=== PATIENT | male | born 1955 | race Caucasian/White ===

== ENCOUNTER 2016-10-13 13:13 | Observation (INO) | payer BC ==
[2016-10-13 13:13] VITALS: BMI 26.4
[2016-10-13] MEDS ORDERED: Aspirin 325 mg EC Tablets PO STA (13:30)
[2016-10-13 13:43] LABS: BASO % 0.4 % (0.0-2.0); EOS # 0.1 K/uL (0.0-0.7); EOS % 1.1 % (0.0-4.0); HEMATOCRIT 32.3 % (35.0-51.0); LYMPH # 1.2 K/uL (1.0-4.3); LYMPH % 16.5 % (20.0-40.0); MEAN CORPUSCULAR HEMOGLOBIN 30.5 pg (27.0-31.0); MEAN CORPUSCULAR HGB CONC 32.8 g/dL (33.0-37.0); MEAN PLATELET VOLUME 9.6 fL (7.2-11.7); MONO # 0.6 K/uL (0.0-0.8); MONO % 8.1 % (0.0-10.0); RED CELL DISTRIBUTION WIDTH 13.9 % (11.5-14.5); WHITE BLOOD COUNT 7.1 K/uL (4.8-10.8)
[2016-10-13 13:52] LABS: POTASSIUM 3.6 mmol/L (3.6-5.2)
[2016-10-13 13:54] LABS: TOTAL PROTEIN 6.5 g/dL (6.3-8.3)
--- NOTE | 2016-10-13 13:54 | RAD ---
PROCEDURE: CHEST RADIOGRAPH, 1 VIEW HISTORY: SOB COMPARISON: 02/12/2013 FINDINGS: LUNGS: There is vascular congestion and bibasilar infiltrates PLEURA: No pneumothorax or pleural fluid seen. CARDIOVASCULAR: Normal. OSSEOUS STRUCTURES: No significant abnormalities. VISUALIZED UPPER ABDOMEN: Normal. OTHER FINDINGS: None. IMPRESSION: Mild vascular congestion and bibasilar infiltrates
[2016-10-13 14:09] LABS: BILIRUBIN,TOTAL 0.6 mg/dL (0.2-1.3)
[2016-10-13 14:14] LABS: TROPONIN I 0.014 ng/mL (0.00-0.120)
--- NOTE | 2016-10-13 14:20 | C.PDOC ---
History Of Present Illness 61 y/o male presents to ED with complaint of substernal chest pressure intermittently for the last 3 days. Patient notes poor compliance with blood pressure medications and states his Lisinopril was increased from 20mg to 40mg 2 weeks ago. Patient reports he receives dialysis Monday, Thrday, - had dialysis prior to arrival. Denies fever, chills, nausea, vomiting, shortness of breath, or other associated symptoms. Time Seen by Provider: 10/13/16 13:21 Chief Complaint (Nursing): Chest Pain History Per: Patient History/Exam Limitations: no limitations Onset/Duration Of Symptoms: Days, Intermittent Episodes Current Symptoms Are (Timing): Still Present Quality: Pressure Associated Symptoms: denies: Diaphoresis, Syncope Recent travel outside of the [place]: No Past Medical History Reviewed: Historical Data, Nursing Documentation, Vital Signs Vital Signs: Last Vital Signs Temp 98.3 F 10/13/16 13:19 Pulse 62 10/13/16 17:04 Resp 13 10/13/16 17:04 BP 169/65 H 10/13/16 17:04 Pulse Ox 96 10/13/16 17:04 - Medical History PMH: Anemia, HTN, End Stage Renal Disease, Chronic Kidney Disease - [facility] Procedures CATARAC PHACOEMULS/ASPIR (01/29/14) DIALYSIS ARTERIOVENOSTOM (02/08/13) HEMODIALYSIS (02/08/13) INSERT LENS AT CATAR EXT (01/29/14) VENOUS CATHETERIZATION FOR RENAL DIALYSIS (02/08/13) Family History: States: Unknown Family Hx - Social History Hx Tobacco Use: No Hx Alcohol Use: No Hx Substance Use: No - Immunization History Hx Tetanus Toxoid Vaccination: No Hx Influenza Vaccination: No Hx Pneumococcal Vaccination: No Review Of Systems Except As Marked, All Systems Reviewed And Found Negative. Constitutional: Negative for: Fever, Chills Cardiovascular: Positive for: Chest Pain. Negative for: Palpitations Respiratory: Negative for: Cough, Shortness of Breath Gastrointestinal: Negative for: Nausea, Vomiting Skin: Negative for: Rash Physical Exam - Physical Exam Appears: Non-toxic, No Acute Distress Skin: Normal Color, Warm, Dry Head: Atraumatic, Normacephalic Chest: Symmetrical Cardiovascular: Rhythm Regular Respiratory: Normal Breath Sounds, No Rales, No Rhonchi, No Wheezing Gastrointestinal/Abdominal: Soft, No Tenderness, No Guarding, No Rebound Back: Normal Inspection Extremity: Normal ROM, Capillary Refill (< 2 sec. ), Other (dialysis catheter left upper arm) Extremity: Bilateral: Normal Color And Temperature Neurological/Psych: Oriented x3, Normal Speech, Normal Cognition ED Course And Treatment - Laboratory Results Result Diagrams: 10/13/16 13:35 10/13/16 13:35 Lab Interpretation: Abnormal (c/w ESRD on HD, normal K+ (HD earlier today)) ECG: Interpreted By Me ECG Rhythm: Sinus Rhythm ECG Interpretation: Normal Rate From EC (bpm) O2 Sat by Pulse Oximetry: 97 (RA) Pulse Ox Interpretation: Normal - Radiology CXR: Interpreted by Me CXR Interpretation: Yes: Other (+ mild CHF, + cardiomegaly) Progress Note: Labetolol 200 mg PO and Carvedolol 12.5 mg PO Reevaluation Time: 15:22 Reassessment Condition: Improved - Physician Consult Information Outcome Of Conversation: 1515: d/w Dr. Gregorio- Medicine Cargo Services Coordinator- ok to Tele obs. Medical Decision Making Medical Decision Making: poorly controlled HTN even AFTER HD earlier today Taking Carvedolol 12.5 mg morning and NIGHT- instructed to take BID (8AM and 4PM ) Plan: Carvedolol may be increased to 25 mg BID Lisinopril 40 mg daily recently increased from 20 mg daily (approx 2 wks ago) though considering renal failure, other non-renal HTN meds may be considered. Disposition Doctor Will See Patient In The: Hospital Counseled Patient/Family Regarding: Studies Performed, Diagnosis - Disposition Disposition: HOME/ ROUTINE Disposition Time: 15:24 Condition: GOOD - Clinical Impression Clinical Impression: Chest discomfort, Congestive heart failure, Uncontrolled hypertension - Scribe Statement The provider has reviewed the documentation as recorded by the Gita Guidry Provider Scribe Attestation: All medical record entries made by the Gita were at my direction and personally dictated by me. I have reviewed the chart and agree that the record accurately reflects my personal performance of the history, physical exam, medical decision making, and the department course for this patient. I have also personally directed, reviewed, and agree with the discharge instructions and disposition.
[2016-10-14 01:38] VITALS: RESP 20
[2016-10-14 07:15] LABS: HEMATOCRIT 29.8 % (35.0-51.0); MEAN CELL VOLUME 93.3 fL (80.0-94.0); MEAN CORPUSCULAR HEMOGLOBIN 30.9 pg (27.0-31.0); MEAN CORPUSCULAR HGB CONC 33.1 g/dL (33.0-37.0); MEAN PLATELET VOLUME 9.9 fL (7.2-11.7); RED CELL DISTRIBUTION WIDTH 13.9 % (11.5-14.5); WHITE BLOOD COUNT 6.1 K/uL (4.8-10.8)
[2016-10-14 07:31] LABS: CHLORIDE 96 mmol/L (98-107); POTASSIUM 3.9 mmol/L (3.6-5.2); SODIUM 140 mmol/L (132-148)
[2016-10-14 07:34] LABS: BLOOD UREA NITROGEN 34 mg/dL (9-20); CARBON DIOXIDE 31 mmol/L (22-30); CHOLESTEROL 138 mg/dL (0-199); GFR AFRICAN-AMERICAN 12; GLUCOSE,RANDOM 81 mg/dL (75-110)
[2016-10-14 07:35] LABS: CALCIUM 7.4 mg/dl (8.6-10.4); IRON 51 ug/dL (49-181)
[2016-10-14 07:57] LABS: THYROID STIMULATING HORMONE 3.28 mIU/L (0.46-4.68)
[2016-10-14 08:31] LABS: FOLATE 6.2 ng/mL
[2016-10-14] MEDS ORDERED: CALCIUM ACETATE PO SCH (10:00)
--- NOTE | 2016-10-14 13:03 | CP.PCM.CON ---
History of Present Illness - History of Present Illness History of Present Illness: Middle aged male with history of HTN, ESRD on dialysis who had chest pain but at this time complain of headache. No chest pain. Past Patient History - Past Medical History & Family History Past Medical History?: Yes - Past Social History Smoking Status: Never Smoked - CARDIAC Hx Hypertension: Yes - PULMONARY Hx Respiratory Disorders: No - NEUROLOGICAL Hx Neurological Disorder: No - HEENT Hx Cataracts: Yes Other/Comment: Humberto. Cataract Extraction 2015 - RENAL Date of Last Dialysis Treatment: 10/13/16 - ENDOCRINE/METABOLIC Hx Endocrine Disorders: No - HEMATOLOGICAL/ONCOLOGICAL Hx Anemia: Yes - INTEGUMENTARY Hx Dermatological Problems: No - MUSCULOSKELETAL/RHEUMATOLOGICAL Hx Falls: No - GASTROINTESTINAL Hx Gastroesophageal Reflux: Yes - GENITOURINARY/GYNECOLOGICAL Hx Genitourinary Disorders: No (RENAL FAILURE) - PSYCHIATRIC Hx Substance Use: No - SURGICAL HISTORY Hx Surgeries: Yes Hx Arteriovenous Shunt: Yes (LEFT ARM SEVERAL) Hx Cataract Extraction: Yes (Humberto. EYE) - ANESTHESIA Hx Anesthesia: Yes Hx Anesthesia Reactions: No Hx Malignant Hyperthermia: No Has any member of the family had a problem w/ anesthesia?: No Meds Allergies/Adverse Reactions: Allergies Allergy/AdvReac Type Severity Reaction Status Date / Time No Known Allergies Allergy Verified 10/13/16 13:24 - Medications Medications: Current Medications Aspirin (Aspirin Chewable) 81 mg PO DAILY [facility] Last Admin: 10/14/16 11:34 Dose: 81 mg Calcium Acetate (Phoslo) 667 mg PO TIDCC [facility] Last Admin: 10/14/16 11:22 Dose: 667 mg Carvedilol (Coreg) 12.5 mg PO BID [facility] Last Admin: 10/14/16 11:23 Dose: 12.5 mg Famotidine (Pepcid) 20 mg PO DAILY [facility] Last Admin: 10/14/16 11:23 Dose: 20 mg Heparin Sodium (Porcine) (Heparin) 5,000 units SC Q12 [facility] Hydralazine HCl (Apresoline) 50 mg PO TID [facility] Last Admin: 10/14/16 10:54 Dose: 50 mg Lisinopril (Zestril) 40 mg PO DAILY [facility] Last Admin: 10/14/16 10:54 Dose: 40 mg Physical Exam - Head Exam Head Exam: NORMOCEPHALIC - Neck Exam Neck exam: Positive for: Normal Inspection - Respiratory Exam Respiratory Exam: Decreased Breath Sounds, NORMAL BREATHING PATTERN - Cardiovascular Exam Cardiovascular Exam: REGULAR RHYTHM - Extremities Exam Extremities exam: Positive for: pedal edema - Neurological Exam Neurological exam: Oriented x3 Results - Vital Signs Recent Vital Signs: Last Vital Signs Temp 98.3 F 10/14/16 08:23 Pulse 71 10/14/16 08:23 Resp 20 10/14/16 08:23 BP 161/68 H 10/14/16 11:23 Pulse Ox 96 10/14/16 08:23 - Labs Result Diagrams: 10/15/16 06:00 10/15/16 06:00 Labs: Laboratory Results - last 24 hr 10/13/16 10/14/16 22:33 06:59 WBC 6.1 RBC 3.19 L Hgb 9.9 L Hct 29.8 L MCV 93.3 MCH 30.9 MCHC 33.1 RDW 13.9 Plt Count 156 MPV 9.9 Sodium 140 Potassium 3.9 Chloride 96 L Carbon Dioxide 31 H Anion Gap 17 BUN 34 H Creatinine 5.7 H Est GFR ( Amer) 12 Est GFR (Non-Af Amer) 10 Random Glucose 81 Hemoglobin A1c 5.3 Calcium 7.4 L Iron 51 TIBC 229 L % Saturation 22 Total Creatine Kinase 38 L 36 L CK-MB (Mass) < 0.22 < 0.22 Troponin I, Quant 0.0220 0.0180 Triglycerides 86 Cholesterol 138 LDL Cholesterol Direct 72 HDL Cholesterol 36 Vitamin B12 299 Folate 6.2 TSH 3rd Generation 3.28 - EKG Data EKG shows normal: Sinus rhythm (ST-T changes suggestive of ischemia.) Assessment & Plan (1) Congestive heart failure Assessment and Plan: Fluid overload vs systolic/diastolic dysfunction. may need extra dialysis. Echocardiogarm and fluid restriction. Status: Acute (2) Uncontrolled hypertension Assessment and Plan: Added hydralazine and increase as tolerated. Status: Acute
--- NOTE | 2016-10-14 14:50 | CP.PCM.CON ---
History of Present Illness - History of Present Illness History of Present Illness: 61 y/o male presents to ED with complaint of substernal chest pressure intermittently for the last 3 days. Patient notes poor compliance with blood pressure medications and states his Lisinopril was increased from 20mg to 40mg 2 weeks ago. Patient reports he receives dialysis Monday, Thr, - had dialysis prior to arrival. Denies fever, chills, nausea, vomiting, shortness of breath, or other associated symptoms. PMH: ESRD- ON DIALYSIS 2.5 YEARS DM 2 DIABETIC NEPHROPATHY HTN CHF HX PSH: AV FISTULA SOC HX- NEG FOR SMOKING, ETOH, ILLICITS CONSULT DICTATED WILL ARRANGE FOR DIALYSIS WITH INCREASED UF WILL ADJUST BP MEDS WILL NEED CARDIOLGY EVAL Past Patient History - Past Medical History & Family History Past Medical History?: Yes - Past Social History Smoking Status: Never Smoked - CARDIAC Hx Hypertension: Yes - PULMONARY Hx Respiratory Disorders: No - NEUROLOGICAL Hx Neurological Disorder: No - HEENT Hx Cataracts: Yes Other/Comment: Humberto. Cataract Extraction 2015 - RENAL Date of Last Dialysis Treatment: 10/13/16 - ENDOCRINE/METABOLIC Hx Endocrine Disorders: No - HEMATOLOGICAL/ONCOLOGICAL Hx Anemia: Yes - INTEGUMENTARY Hx Dermatological Problems: No - MUSCULOSKELETAL/RHEUMATOLOGICAL Hx Falls: No - GASTROINTESTINAL Hx Gastroesophageal Reflux: Yes - GENITOURINARY/GYNECOLOGICAL Hx Genitourinary Disorders: No (RENAL FAILURE) - PSYCHIATRIC Hx Substance Use: No - SURGICAL HISTORY Hx Surgeries: Yes Hx Arteriovenous Shunt: Yes (LEFT ARM SEVERAL) Hx Cataract Extraction: Yes (Humberto. EYE) - ANESTHESIA Hx Anesthesia: Yes Hx Anesthesia Reactions: No Hx Malignant Hyperthermia: No Has any member of the family had a problem w/ anesthesia?: No Meds Allergies/Adverse Reactions: Allergies Allergy/AdvReac Type Severity Reaction Status Date / Time No Known Allergies Allergy Verified 10/13/16 13:24 - Medications Medications: Current Medications Acetaminophen (Tylenol 325mg Tab) 650 mg PO Q6 PRN PRN Reason: Pain, Mild (1-3) Stop: 10/17/16 23:59 Aspirin (Aspirin Chewable) 81 mg PO DAILY [facility] Last Admin: 10/14/16 11:34 Dose: 81 mg Calcium Acetate (Phoslo) 667 mg PO TIDCC [facility] Last Admin: 10/14/16 11:22 Dose: 667 mg Carvedilol (Coreg) 12.5 mg PO BID [facility] Last Admin: 10/14/16 11:23 Dose: 12.5 mg Famotidine (Pepcid) 20 mg PO DAILY [facility] Last Admin: 10/14/16 11:23 Dose: 20 mg Heparin Sodium (Porcine) (Heparin) 5,000 units SC Q12 [facility] Hydralazine HCl (Apresoline) 50 mg PO TID [facility] Last Admin: 10/14/16 14:32 Dose: 50 mg Lisinopril (Zestril) 40 mg PO DAILY [facility] Last Admin: 10/14/16 10:54 Dose: 40 mg Results - Vital Signs Recent Vital Signs: Last Vital Signs Temp 98.3 F 10/14/16 08:23 Pulse 71 10/14/16 08:23 Resp 20 10/14/16 08:23 BP 161/68 H 10/14/16 11:23 Pulse Ox 96 10/14/16 08:23 - Labs Result Diagrams: 10/14/16 06:59 10/14/16 06:59 Labs: Laboratory Results - last 24 hr 10/13/16 10/14/16 22:33 06:59 WBC 6.1 RBC 3.19 L Hgb 9.9 L Hct 29.8 L MCV 93.3 MCH 30.9 MCHC 33.1 RDW 13.9 Plt Count 156 MPV 9.9 Sodium 140 Potassium 3.9 Chloride 96 L Carbon Dioxide 31 H Anion Gap 17 BUN 34 H Creatinine 5.7 H Est GFR ( Amer) 12 Est GFR (Non-Af Amer) 10 Random Glucose 81 Hemoglobin A1c 5.3 Calcium 7.4 L Iron 51 TIBC 229 L % Saturation 22 Total Creatine Kinase 38 L 36 L CK-MB (Mass) < 0.22 < 0.22 Troponin I, Quant 0.0220 0.0180 Triglycerides 86 Cholesterol 138 LDL Cholesterol Direct 72 HDL Cholesterol 36 Vitamin B12 299 Folate 6.2 TSH 3rd Generation 3.28
--- NOTE | 2016-10-14 15:16 | CON ---
DATE: 10/14/2016 HISTORY OF PRESENT ILLNESS: The patient is a 61-year-old man who has been on maintenance he modialysis for approximately 2-1/2 years, presents with chest pain for 3 days, accelerated hypertensi on. He was found to have negative troponins. The patient has been on maintenance hemodialysis and a renal consult was requested. Recently he has been on lisinopril, which was just increased to 40 mg daily. Pepcid and PhosLo are his other medications. PAST MEDICAL HISTORY: End-stage renal disease, diabetes mellitus type 2, diabetic nephropathy, hyper tension and he had prior episode of congestive heart failure. SOCIAL HISTORY: Negative for smoking, alcohol abuse or illicit drug use. FAMILY HISTORY: Negative for chronic kidney disease. PAST SURGICAL HISTORY: AV fistula. REVIEW OF SYSTEMS: Chest pain and palpitations for 3 days, has increasing headaches. No nausea, vom iting. He has little urine output. No diaphoresis. No new rashes, no diarrhea and no visual distur bances or hearing deficits. PHYSICAL EXAMINATION: GENERAL: He is a well-developed man in no acute distress. VITAL SIGNS: Blood pressure 161/68, temperature 98.3, pulse is 71, pulse ox is 96% on room air. HEENT: He is anicteric. Mouth was clear. NECK: No JVD. LUNGS: O[place]nor showed rales at bilateral bases. HEART: Regular rhythm, no murmur. ABDOMEN: Soft, benign. No mass or organomegaly. EXTREMITIES: No peripheral edema. He had an upper extremity AV fistula with a thrill and bruit. LABORATORY DATA: Blood work shows hemoglobin 9.9, potassium 3.9, creatinine 5.7, calcium 7.4. Chest x-ray was done in the Emergency Department and showed mild CHF. IMPRESSION: The patient has moderate fluid overload, uncontrolled hypertension, end-stage renal dise ase, diabetic nephropathy. PLAN: Will be to increase blood pressure medications, increase ultrafiltration with dialysis, which will be arranged first thing in the morning. The patient is being seen by cardiology for workup as wilfredo martinez. We will follow up. Giovanni Bonilla MD cc: [id number] TT: 10/14/2016 15:16:12 Confirmation # [id number] Dictation # [id number] rn
--- NOTE | 2016-10-15 06:31 | CARD ---
APPROVED REPORT EKG Measurement Heart [id number] <Conclusion> Normal sinus rhythm Possible Left atrial enlargement Nonspecific ST and T wave abnormality Abnormal ECG
[2016-10-15 06:49] LABS: HEMATOCRIT 28.4 % (35.0-51.0); MEAN CELL VOLUME 92.5 fL (80.0-94.0); MEAN CORPUSCULAR HEMOGLOBIN 31.1 pg (27.0-31.0); MEAN CORPUSCULAR HGB CONC 33.6 g/dL (33.0-37.0); MEAN PLATELET VOLUME 10.1 fL (7.2-11.7); RED CELL DISTRIBUTION WIDTH 14.3 % (11.5-14.5); WHITE BLOOD COUNT 5.9 K/uL (4.8-10.8)
[2016-10-15 07:57] LABS: POTASSIUM 3.7 mmol/L (3.6-5.2)
[2016-10-15 07:59] LABS: ALB/GLOB RATIO 0.9 (1.0-2.1); BILIRUBIN,TOTAL 0.5 mg/dL (0.2-1.3); PHOSPHOROUS 4.3 mg/dL (2.5-4.5); TOTAL PROTEIN 5.4 g/dL (6.3-8.3)
[2016-10-15 08:00] LABS: CALCIUM 7.7 mg/dl (8.6-10.4)
--- NOTE | 2016-10-15 08:15 | HP ---
CHIEF COMPLAINT: Chest pain. HISTORY OF PRESENT ILLNESS: The patient is a 61-year-old male who came to the Emergency Room with substernal chest pain, pressure intermittently for the last 3 days. The patient noted with poor compliance with blood pressure medications and states his lisinopril was increased from 20-40 two weeks ago, but he is very noncompliant. The patient reports that he receives dialysis Monday, and Monday, had dialysis prior to arrival. Denies fever, chills. No nausea, vomiting, or diarrhea. No hematuria or hematochezia. No swelling of the leg. The pain was like intermittent episode, like pressure. Denies diaphoresis, denies syncope. PAST MEDICAL HISTORY: Anemia, hypertension, end-stage renal disease on hemodialysis, chronic kidney disease. SOCIAL HISTORY: No smoking, no drugs, no ethanol. FAMILY HISTORY: Father and mother noncontributory. REVIEW OF SYSTEMS: The patient seen and examined on the bedside. Negative for fever or chills. Positive for chest pain. Negative for palpitation. Negative for cough and shortness of breath. No nausea or vomiting. No rash. PHYSICAL EXAMINATION: VITAL SIGNS: Temperature 97.6, pulse 56, blood pressure 148/57, respiratory rate 20. HEENT: Head normocephalic, atraumatic. Eyes: PERRLA. Extraocular muscles intact. Conjunctivae pink. Eyelids unremarkable. Nose patent. Mucous membranes moist. NECK: Supple. No carotid bruit, JVD or thyromegaly. CHEST: Bilaterally symmetrical. HEART: S1, S2 positive. LUNGS: Clear to auscultation. ABDOMEN: Soft. Bowel sounds positive. No organomegaly. EXTREMITIES: No edema, no cyanosis. NEUROLOGIC: The patient is awake, alert, moving all 4 extremities. No focal deficits. LABORATORY DATA: White blood cells 6.1, hemoglobin 10.6 on admission, repeat is 9.9, hematocrit 29.8, platelets 156. Sodium 140, potassium 3.9, BUN 34, TIBC 229. ASSESSMENT AND PLAN: The patient is a 61-year-old male with anemia, hypocalcemia, iron deficiency, congestive heart failure, BNP is high, came with chest pain, seen by Dr. Chad Davila. The patient has history of diabetes mellitus, diabetic nephropathy, diabetic peripheral neuropathy, hypertension, had prior episode of congestive heart failure. Plan will be to increase blood pressure medication, increase ultrafiltration with dialysis which we will arrange first thing in the morning. The patient is being seen by rack carrier. I appreciated Dr. Bonilla's and Dr. Long's input. Fluid overload versus systolic, diastolic dysfunction. May need extra dialysis. Echocardiogram. Fluid restrictions. Dr. Long added hydralazine. Gastrointestinal and deep venous thrombosis prophylaxis. Repeat labs. We will follow up. Kylie Gregorio MD cc: [id number] TT: 10/15/2016 08:15:03 tn [email or web address]
[2016-10-15 08:30] LABS: THYROID STIMULATING HORMONE 3.5 mIU/L (0.46-4.68)
[2016-10-15 08:49] LABS: IRON 60 ug/dL (49-181)
[2016-10-15 09:04] LABS: FOLATE 6.8 ng/mL
--- NOTE | 2016-10-15 10:55 | CP.PCM.PN ---
Subjective - Date & Time of Evaluation Date of Evaluation: 10/15/16 Time of Evaluation: 09:00 - Subjective Subjective: c/o headache on HD, 2.5 kg uf via TERE no chest pain not sob no nausea no vomiting no rash no focal weakness decreased u/o Objective - Vital Signs/Intake and Output Vital Signs (last 24 hours): Temp Pulse Resp BP Pulse Ox 97.6 F 68 20 132/106 H 99 10/15/16 09:15 10/15/16 09:15 10/15/16 09:15 10/15/16 09:15 10/15/16 07:00 Intake and Output: 10/15/16 10/15/16 06:59 18:59 Intake Total 200 Balance 200 - Medications Medications: Current Medications Acetaminophen (Tylenol 325mg Tab) 650 mg PO Q6 PRN PRN Reason: Pain, Mild (1-3) Stop: 10/17/16 23:59 Aspirin (Aspirin Chewable) 81 mg PO DAILY [facility] Last Admin: 10/14/16 11:34 Dose: 81 mg Calcium Acetate (Phoslo) 667 mg PO TIDCC [facility] Last Admin: 10/14/16 17:18 Dose: 667 mg Carvedilol (Coreg) 12.5 mg PO BID [facility] Last Admin: 10/14/16 21:06 Dose: 12.5 mg Famotidine (Pepcid) 20 mg PO DAILY [facility] Last Admin: 10/14/16 11:23 Dose: 20 mg Furosemide (Lasix) 40 mg IVP Q12 [facility] Heparin Sodium (Porcine) (Heparin) 5,000 units SC Q12 [facility] Last Admin: 10/14/16 21:12 Dose: 5,000 units Hydralazine HCl (Apresoline) 50 mg PO TID [facility] Last Admin: 10/14/16 21:06 Dose: 50 mg Lisinopril (Zestril) 40 mg PO DAILY [facility] Last Admin: 10/14/16 10:54 Dose: 40 mg - Labs Labs: 10/15/16 06:00 10/15/16 06:00 - Constitutional Appears: Non-toxic, Chronically Ill - Head Exam Head Exam: ATRAUMATIC - Eye Exam Eye Exam: EOMI, Normal appearance - ENT Exam ENT Exam: Mucous Membranes Moist - Neck Exam Neck Exam: Full ROM. absent: Lymphadenopathy - Respiratory Exam Respiratory Exam: Clear to Ausculation Bilateral. absent: Accessory Muscle Use - Cardiovascular Exam Cardiovascular Exam: REGULAR RHYTHM. absent: Rubs - GI/Abdominal Exam GI & Abdominal Exam: Soft, Normal Bowel Sounds. absent: Tenderness - Neurological Exam Neurological Exam: Alert, Awake - Psychiatric Exam Psychiatric exam: Normal Affect Assessment and Plan - Assessment and Plan (Free Text) Assessment: Dialysis pt with probable fluid overload and poorly controlled bp BP improved UF on HD, achieve new EDW
[2016-10-15 16:35] VITALS: BP 159/67; PULSE 94; TEMP 98.2; O2SAT 95
--- NOTE | 2016-10-16 15:04 | DS ---
CHIEF COMPLAINT: Chest pain. HISTORY OF PRESENT ILLNESS: The patient is a 61-year-old male with past medical history of anemia, h ypertension, end-stage renal disease on hemodialysis. Came with substernal chest pain. Pain is like pressure, intermittent for the last 3 days. The patient is very noncompliant with blood pressure me dicine and states his lisinopril was increased from 20 to 40 two weeks ago, but he was not taking reg ularly. The patient received dialysis on Monday. Received dialysis today also. Denies fever, chil ls. No chest pain today. No diaphoresis. Seen by the hydrographical technical officer and television operator. Cleared to go home. Will do cardiac workup as outpatient. Has all medicines at home. PAST MEDICAL HISTORY: Anemia, hypertension, end-stage renal disease on hemodialysis, noncompliance. SOCIAL HISTORY: No smoking, no drugs, no ethanol. FAMILY HISTORY: Father and mother noncontributory. REVIEW OF SYSTEMS: The patient seen and examined on the bedside in the dialysis room. No chest pain . No nausea, vomiting, diarrhea. No hematuria, no hematochezia. Chest pain is almost gone. No maikol rtness of breath. Wants to go home. PHYSICAL EXAMINATION: VITAL SIGNS: Temperature 98.2, pulse 94, blood pressure 120/53, respiratory rate 20. HEENT: Head normocephalic, atraumatic. Eyes, PERRLA. Extraocular muscles intact. Conjunctivae pin k. Eyelids unremarkable. Nose patent. NECK: Supple. No carotid bruit, no JVD, no thyromegaly. CHEST: Bilaterally symmetrical. HEART: S1, S2 positive. LUNGS: Clear to auscultation. ABDOMEN: Soft. Bowel sounds positive. No organomegaly. EXTREMITIES: No edema, no cyanosis. NEUROLOGIC: The patient is awake, alert, moving all 4 extremities. No focal deficits. MEDICATIONS: Given in the hospital is hydralazine, aspirin, Coreg, heparin, Lasix, Pepcid, PhosLo, T ylenol, Zestril. LABORATORIES: White blood cells 5.9, hemoglobin 9.5, hematocrit 28.4, platelets 154. Sodium 136, po tassium 3.7, BUN 42, creatinine 7.3, calcium 7.7. Troponin less than 0.0220, second is 0.0180. ASSESSMENT AND PLAN: The patient is a 61-year-old male with anemia, renal insufficiency on hemodialy sis, hypocalcemia, came with chest pain. Troponin x 2 is negative. Seen by the television operator, Dr. Sonny lopez, has congestive heart failure, fluid overload versus systolic, slight diastolic dysfunction, may need extra dialysis, echocardiogram and fluid restriction. Education done. Urged to drink less wate r. Uncontrolled hypertension. Dr. Long added hydralazine and increased the dose. The patient is n oncompliant. Education done about the compliance, see the hydrographical technical officer. Blood pressure improved, go t dialysis. Debt And Budget Counselor and hydrographical technical officer cleared the patient to go home. The patient wanted to go home, discussion done. Follow up cardiac workup as outpatient. He agrees. If pain will come back, he will come to the Emergency Room or call 911. He understands. He has all medications at home and agreed to take timely. Kylie Gregorio MD cc: [id number] TT: 10/16/2016 15:03:38 en
== END 2016-10-15 16:00 | disposition home or self-care (01) ==
LOC: C.ER 13:13 → C.9E 15:19 → C.6T 23:08
PROVIDERS: ADMIT Internal Medicine; ATTEND Internal Medicine
DX: R07.9 Chest pain, unspecified (principal); I50.9 Heart failure, unspecified; I10 Essential (primary) hypertension; I12.0 Hypertensive chronic kidney disease with stage 5 chronic kidney disease or end stage renal disease; N18.6 End stage renal disease
CPT/HCPCS: 36415; 71010; 80048; 80053; 80061; 82607; 82746; 83036; 83540; 83550; 83880; 83970; 84100; 84443; 84484; 85025; 85027; 93005; 99285; G0257; G0378; J1644